=== PATIENT | female | born 1935 | race African-American/Black ===

== ENCOUNTER 2017-08-29 21:31 | Emergency (ER) | payer OTHER, MEDICAID ==
[~2017-08-29] VITALS: Ht 165.1 cm; Wt 81.6 kg
--- NOTE | 2017-08-29 21:54 | NUR ---
81 yo female bb ra from home. patient is a/o x 3, c/o nausea/ vomit. patient assisted to er bed, skin warm and dry, resp even and unlabored. patient gowned, placed on lunchroom monitor, will continue to monitor, awaiting orders from provider
[2017-08-29] MEDS ORDERED: ONDANSETRON HCL/PF 4 MG/2 ML VIAL ONE (22:07)
--- NOTE | 2017-08-29 22:15 | NUR ---
18g left ac iv started, medicated pt as ordered
--- NOTE | 2017-08-29 22:17 | NUR ---
patient transported to ct via gurney by radiology team
[2017-08-29] MEDS ORDERED: IV NS 0.9% 1,000 ML BAG IV ONE (22:30)
[2017-08-29] MEDS ORDERED: ONDANSETRON HCL/PF 4 MG/2 ML VIAL IVP ONE (22:30)
--- NOTE | 2017-08-29 22:31 | NUR ---
Patient returned from CT via gurney by radiology team
[2017-08-29 23:02] LABS: BASOPHILS % (AUTO) 0.2 % (0.0-2.0); EOSINOPHILS # (AUTO) 0.1 /CMM (0.0-0.7); EOSINOPHILS % (AUTO) 0.5 % (0.0-6.0); HEMATOCRIT 35 % (33-45); HEMOGLOBIN 11.8 g/dL (11.5-14.8); LYMPHOCYTES # (AUTO) 0.9 /CMM (0.8-4.8); LYMPHOCYTES % (AUTO) 7.8 % (20.0-44.0); MEAN CORPUSCULAR HEMOGLOBIN 28 PG (26.0-33.0); MEAN CORPUSCULAR HGB CONC 34 g/dl (31.0-36.0); MEAN CORPUSCULAR VOLUME 83 fL (82-100); MONOCYTES # (AUTO) 0.4 /CMM (0.1-1.30); MONOCYTES % (AUTO) 3.2 % (2.0-12.0); NEUTROPHILS # (AUTO) 9.7 /CMM (1.8-8.9); NEUTROPHILS % (AUTO) 88.3 % (43.0-81.0); PLATELET COUNT (AUTO) 180 /CMM (150-450); RDW COEFFICIENT OF VARIATION 12.3 (11.5-15.0); RED BLOOD CELL COUNT(AUTO) 4.23 MIL/uL (4.0-5.2); WHITE BLOOD COUNT (AUTO) 11.1 K/uL (4.3-11.0)
[2017-08-29 23:17] LABS: INR 1.03 (0.87-1.13)
[2017-08-29 23:24] LABS: TROPONIN I < 0.017 ng/mL (0.00-0.056)
[2017-08-29 23:27] LABS: ALANINE AMINOTRANSFERASE 15 U/L (12-78); ALBUMIN 3.1 g/dL (3.4-5.0); ALKALINE PHOSPHATASE 59 U/L (46-116); ASPARTATE AMINOTRANSFERASE 12 U/L (15-37); BILIRUBIN,DIRECT 0.1 mg/dL (0.0-0.2); BILIRUBIN,TOTAL 0.4 mg/dL (0.2-1.0); CALCIUM, SERUM 8.9 mg/dL (8.5-10.1); CARBON DIOXIDE 27 mmol/L (21-32); CHLORIDE 106 mmol/L (98-107); CREATININE 1.1 mg/dL (0.6-1.3); GLUCOSE 212 mg/dL (74-106); SODIUM SERUM 143 mmol/L (136-145); TOTAL PROTEIN, SERUM 6.6 g/dL (6.4-8.2); UREA NITROGEN, BLOOD 21 mg/dL (7-18)
[2017-08-29 23:29] LABS: POTASSIUM 2.4 mmol/L (3.5-5.1)
[2017-08-30] MEDS ORDERED: MISCELLANEOUS MED 1 EA EA XX ONE
[2017-08-30] MEDS ORDERED: POTASSIUM CHLORIDE 20 MEQ POWDER PACKET PO ONE
[2017-08-30 00:37] LABS: APPEARANCE,URINE CLEAR (CLEAR); BILIRUBIN,URINE NEGATIVE (NEGATIVE); BLOOD, URINE NEGATIVE Ery/uL (NEGATIVE); COLOR,URINE YELLOW (YELLOW); KETONES,URINE 1+ (NEGATIVE); LEUKOCYTE ESTERASE ,URINE NEGATIVE (NEGATIVE); NITRITE, URINE NEGATIVE (NEGATIVE); PROTEIN,URINE NEGATIVE (NEGATIVE); UGLUCOSE 1+ mg/dL (NEGATIVE); UROBILINOGEN,URINE 0.2 EU/dL (0.2)
--- NOTE | 2017-08-30 00:46 | NUR ---
[facility]; AWAITING RETURN CALL FROM [facility]
[2017-08-30 00:53] LABS: RBC,URINE NONE SEEN /HPF (0-2)
[2017-08-30 00:54] LABS: BACTERIA,URINE None seen /HPF (None Seen); SQUAMOUS EPITHELIAL CELL,UR Moderate /HPF (None Seen)
[2017-08-30] MEDS ORDERED: POTASSIUM CHLORIDE 20 MEQ POWDER PACKET ONE (00:55)
[2017-08-30] MEDS ORDERED: IV PREMIX D5 1/2NS + KCL 1,000 ML IV ONE (01:00)
[2017-08-30] MEDS ORDERED: ONDANSETRON HCL/PF 4 MG/2 ML VIAL ONE (01:01)
--- NOTE | 2017-08-30 01:02 | NUR ---
patient is resting in er bed, nad noted, skin warm and dry. will continue to monitor
--- NOTE | 2017-08-30 02:37 | NUR ---
[facility]; [phone]; DR. DALLAS ACCEPTING; ETA [id number]
--- NOTE | 2017-08-30 02:45 | NUR ---
stephon PEREZ took report
[2017-08-30 03:08] VITALS: BP 140/72
--- NOTE | 2017-08-30 03:11 | NUR ---
patient is resting in er bed, nad noted, skin warm and dry. will continue to monitor
--- NOTE | 2017-08-30 04:00 | NUR ---
REPORT GIVEN TO EMT
--- NOTE | 2017-08-30 04:30 | NUR ---
PT TRANSPORTED VIA AMBULANCE BY EMS
== END 2017-08-30 04:31 | disposition short-term general hospital (02) ==
LOC: ER 21:34
DX: E87.6 Hypokalemia (principal); E86.0 Dehydration; I10 Essential (primary) hypertension; R11.2 Nausea with vomiting, unspecified; Z98.890 Other specified postprocedural states
CPT/HCPCS: 36415; 70450; 71045; 80048; 80076; 81001; 84484; 85025; 85730; 93005; 96361; 96374; 99291; A4606; J2405 ×2; J3490; 81000-TC; Z7610

== ENCOUNTER 2017-10-02 08:43 | Emergency (ER) | payer OTHER, MEDICAID ==
[~2017-10-02] VITALS: Ht 167.6 cm; Wt 66.7 kg
--- NOTE | 2017-10-02 08:50 | NUR ---
[id number] FROM HOME: NAUSEA, VOMITING, CONSTIPATION. BS IN FIELD 88. PLACED ON MONITOR. AWAITING MD ORDER
--- NOTE | 2017-10-02 09:12 | NUR ---
WILLIAM #18 IV ACCESS. BLOOD SAMPLE COLLECTED SENT TO LAB
[2017-10-02] MEDS ORDERED: LISI40TA4 PO (09:24)
[2017-10-02] MEDS ORDERED: DONE5TAB34 PO (09:24)
[2017-10-02] MEDS ORDERED: AMLO10TA2 PO (09:24)
[2017-10-02] MEDS ORDERED: ATEN50TA PO (09:24)
[2017-10-02] MEDS ORDERED: CLOP75TA15 PO (09:24)
[2017-10-02] MEDS ORDERED: ATOR40TA PO (09:24)
--- NOTE | 2017-10-02 09:25 | NUR ---
EKG IN PROGRESS
[2017-10-02] MEDS ORDERED: IV NS 0.9% 1,000 ML BAG IV ONE (09:30)
[2017-10-02 09:35] LABS: BASOPHILS % (AUTO) 0.2 % (0.0-2.0); EOSINOPHILS # (AUTO) 0.1 /CMM (0.0-0.7); EOSINOPHILS % (AUTO) 1.6 % (0.0-6.0); HEMATOCRIT 33 % (33-45); HEMOGLOBIN 10.9 g/dL (11.5-14.8); LYMPHOCYTES # (AUTO) 1.1 /CMM (0.8-4.8); LYMPHOCYTES % (AUTO) 13.7 % (20.0-44.0); MEAN CORPUSCULAR HEMOGLOBIN 28 PG (26.0-33.0); MEAN CORPUSCULAR HGB CONC 33 g/dl (31.0-36.0); MEAN CORPUSCULAR VOLUME 84 fL (82-100); MONOCYTES # (AUTO) 0.5 /CMM (0.1-1.30); MONOCYTES % (AUTO) 6.4 % (2.0-12.0); NEUTROPHILS # (AUTO) 6.1 /CMM (1.8-8.9); NEUTROPHILS % (AUTO) 78.1 % (43.0-81.0); PLATELET COUNT (AUTO) 142 /CMM (150-450); RDW COEFFICIENT OF VARIATION 13.9 (11.5-15.0); RED BLOOD CELL COUNT(AUTO) 3.99 MIL/uL (4.0-5.2); WHITE BLOOD COUNT (AUTO) 7.8 K/uL (4.3-11.0)
--- NOTE | 2017-10-02 09:35 | NUR ---
PT TAKEN TO CT
[2017-10-02 09:49] LABS: SERUM AMMONIA < 11 umol/L (11-32)
[2017-10-02 09:56] LABS: INR 1.41 (0.87-1.13); TROPONIN I 0.021 ng/mL (0.00-0.056)
[2017-10-02 10:02] LABS: ALANINE AMINOTRANSFERASE 19 U/L (12-78); ALBUMIN 1.8 g/dL (3.4-5.0); ALKALINE PHOSPHATASE 79 U/L (46-116); ASPARTATE AMINOTRANSFERASE 20 U/L (15-37); BILIRUBIN,DIRECT 0.2 mg/dL (0.0-0.2); BILIRUBIN,TOTAL 0.4 mg/dL (0.2-1.0); CALCIUM, SERUM 6.2 mg/dL (8.5-10.1); CARBON DIOXIDE 19 mmol/L (21-32); CHLORIDE 113 mmol/L (98-107); CREATININE 0.9 mg/dL (0.6-1.3); GLUCOSE 75 mg/dL (74-106); SODIUM SERUM 144 mmol/L (136-145); THYROID STIMULATING HORMONE 3.411 uIU/mL (0.358-3.74); TOTAL PROTEIN, SERUM 4.4 g/dL (6.4-8.2); UREA NITROGEN, BLOOD 16 mg/dL (7-18)
--- NOTE | 2017-10-02 10:02 | NUR ---
URINE SAMPLE COLLECTED SENT TO LAB
[2017-10-02 10:07] LABS: POTASSIUM 2.6 mmol/L (3.5-5.1)
[2017-10-02 10:16] LABS: APPEARANCE,URINE CLEAR (CLEAR); BILIRUBIN,URINE 1+ (NEGATIVE); BLOOD, URINE NEGATIVE Ery/uL (NEGATIVE); COLOR,URINE YELLOW (YELLOW); KETONES,URINE 1+ (NEGATIVE); LEUKOCYTE ESTERASE ,URINE NEGATIVE (NEGATIVE); NITRITE, URINE NEGATIVE (NEGATIVE); PH,URINE 5.5 (5.0-8.0); PROTEIN,URINE NEGATIVE (NEGATIVE); UGLUCOSE NEGATIVE (NEGATIVE); UROBILINOGEN,URINE 0.2 EU/dL (0.2)
[2017-10-02] MEDS ORDERED: Magnesium 1GM/D5W 100ML PREMIX 100 ML IV ONE ×2 (10:34→10:48)
[2017-10-02 10:44] LABS: BACTERIA,URINE None seen /HPF (None Seen); RBC,URINE NONE SEEN /HPF (0-2); SQUAMOUS EPITHELIAL CELL,UR Few /HPF (None Seen); WBC,URINE 0-2 /HPF (0-3)
--- NOTE | 2017-10-02 10:53 | NUR ---
[facility] [phone]
[2017-10-02] MEDS ORDERED: MISCELLANEOUS MED 1 EA EA XX ONE (11:00)
[2017-10-02] MEDS ORDERED: POTASSIUM CL. PREMIX PERIPHER. 0 ML ONE (11:20)
[2017-10-02] MEDS ORDERED: [UNRECOGNIZED DRUG - OTHER] IV ONE ×2 (11:30)
[2017-10-02] MEDS ORDERED: DEXTROSE IV ONE ×2 (11:30)
[2017-10-02] MEDS ORDERED: POTASSIUM CHLORIDE IV ONE ×2 (11:30)
--- NOTE | 2017-10-02 11:57 | NUR ---
[facility], EXPECTING A CALL BACK FROM A LINDSAY
--- NOTE | 2017-10-02 12:12 | NUR ---
WILBER BARROW CALLED, ON THE PHONE WITH DR WHITEHEAD.
--- NOTE | 2017-10-02 12:52 | NUR ---
[facility] ROOM [address] DR COOLEY.S NUMBER TO GIVE REPORT ALS ETA [phone]
--- NOTE | 2017-10-02 14:07 | NUR ---
GAVE REPORT TO DAXA PEREZ [facility]
[2017-10-02 14:11] VITALS: BP 151/40
== END 2017-10-02 14:27 | disposition short-term general hospital (02) ==
LOC: ER 08:45
DX: E86.0 Dehydration (principal); E87.6 Hypokalemia; E88.09 Other disorders of plasma-protein metabolism, not elsewhere classified; E63.9 Nutritional deficiency, unspecified; I10 Essential (primary) hypertension; K59.00 Constipation, unspecified; Z88.0 Allergy status to penicillin; Z98.890 Other specified postprocedural states
CPT/HCPCS: 36415; 51701; 70450; 71045; 80048; 80076; 80305; 81001; 82140; 82962 ×2; 83605; 84443; 84484; 85025; 85730; 87081; 87086; 93005; 96361; 96365; 96366; 96367; 99291; A4606; J3475; J3480; J3490; J7030; 81000-TC; Z7610

== ENCOUNTER 2017-11-28 15:27 | Emergency (ER) | payer OTHER ==
[~2017-11-28] VITALS: Ht 165.1 cm; Wt 81.6 kg
[~2017-11-28 15:27] MED LIST: AMLO10TA6 PO; ATEN50TA PO; ATOR40TA PO; CLOP75TA15 PO; DONE5TAB34 PO; LISI40TA4 PO
[2017-11-28 16:43] LABS: CALCIUM, SERUM 9.3 mg/dL (8.5-10.1); CARBON DIOXIDE 18 mmol/L (21-32); CHLORIDE 106 mmol/L (98-107); CREATININE 1.1 mg/dL (0.6-1.3); GLUCOSE 73 mg/dL (74-106); POTASSIUM 3.7 mmol/L (3.5-5.1); SODIUM SERUM 138 mmol/L (136-145); UREA NITROGEN, BLOOD 10 mg/dL (7-18)
[2017-11-28 16:49] LABS: ALANINE AMINOTRANSFERASE 16 U/L (12-78); ALBUMIN 2.5 g/dL (3.4-5.0); ALKALINE PHOSPHATASE 42 U/L (46-116); ASPARTATE AMINOTRANSFERASE 28 U/L (15-37); BILIRUBIN,DIRECT 0.2 mg/dL (0.0-0.2); BILIRUBIN,TOTAL 0.6 mg/dL (0.2-1.0); TOTAL PROTEIN, SERUM 5.9 g/dL (6.4-8.2)
[2017-11-28 17:04] LABS: TROPONIN I < 0.017 ng/mL (0.00-0.056)
[2017-11-28 17:07] LABS: BASOPHILS # (AUTO) 0.1 /CMM (0.0-0.2); BASOPHILS % (AUTO) 0.9 % (0.0-2.0); EOSINOPHILS % (AUTO) 2.4 % (0.0-6.0); HEMATOCRIT 35 % (33-45); HEMOGLOBIN 11.8 g/dL (11.5-14.8); LYMPHOCYTES # (AUTO) 1.2 /CMM (0.8-4.8); LYMPHOCYTES % (AUTO) 16.1 % (20.0-44.0); MEAN CORPUSCULAR HGB CONC 34 g/dl (31.0-36.0); MEAN CORPUSCULAR VOLUME 83 fL (82-100); MONOCYTES # (AUTO) 0.3 /CMM (0.1-1.30); MONOCYTES % (AUTO) 4.7 % (2.0-12.0); NEUTROPHILS # (AUTO) 5.6 /CMM (1.8-8.9); NEUTROPHILS % (AUTO) 75.9 % (43.0-81.0); PLATELET COUNT (AUTO) 214 /CMM (150-450); RDW COEFFICIENT OF VARIATION 15.7 (11.5-15.0); RED BLOOD CELL COUNT(AUTO) 4.17 MIL/uL (4.0-5.2); WHITE BLOOD COUNT (AUTO) 7.4 K/uL (4.3-11.0)
--- NOTE | 2017-11-28 18:44 | NUR ---
DEVEN 860 FROM HOME: GLF TODAY, PT UNABLE TO TAKE CARE OF SELF. NAD NOTED, VSS, RESP EVEN AND UNLABORED, PT WAS PUT ON MONITOR, WAITING FOR MD BOURNE.
[2017-11-28 18:45] VITALS: BP 136/78
--- NOTE | 2017-11-28 18:45 | NUR ---
Patient discharged to home in stable condition. Written and verbal after care instructions given. Patient verbalizes understanding of instruction.
== END 2017-11-28 18:46 | disposition home or self-care (01) ==
LOC: ER 15:28
DX: Z04.3 Encounter for examination and observation following other accident (principal); I10 Essential (primary) hypertension; Z98.890 Other specified postprocedural states; Z88.0 Allergy status to penicillin; W18.30XA Fall on same level, unspecified, initial encounter; Y93.89 Activity, other specified; Y92.89 Other specified places as the place of occurrence of the external cause; Y99.8 Other external cause status
CPT/HCPCS: 36415; 71045; 80048; 80076; 84484; 85025; 85730; 93005; 99285; A4606; Z7610